=== PATIENT | female | born 1940 | race Caucasian/White ===

== ENCOUNTER → 2022-05-31 | Outpatient (CLI) | payer MEDICARE, BC ==
--- NOTE | 2022-05-31 10:42 | BD ---
EXAMINATION TYPE: Axial Bone Density DATE OF EXAM: 05/31/2022 CLINICAL HISTORY: 82 years old Female. ICD-10 CODE: Z78.0 MENOPAUSAL STATE Height: 63in Weight: 112lb FRAX RISK QUESTIONS: Family History (Parent hip fracture): yes Secondary Osteoporosis: RISK FACTORS HISTORY OF: Active: yes Postmenopausal woman: yes MEDICATIONS: Thyroid Medications: Which medication: Levothyroxine How Long: about 6 years Additional Medications: cholesterol med, vitamin d Additional History: EXAM MEASUREMENTS: Bone mineral densitometry was performed using the mChron System. Bone mineral density as measured about the Lumbar spine is: ----- L1-L4(G/cm2): 1.247 T Score Values are as follows: ----- L1: -0.1 ----- L2: -0.7 ----- L3: 0.8 ----- L4: 1.8 ----- L1-L4: 0.6 Z Score Values are as follows: ----- L1: 2.2 ----- L2: 1.6 ----- L3: 3.1 ----- L4: 4.1 ----- L1-L4: 2.9 First dexa at [facility] Bone mineral density about the R hip (g/cm2): 0.862 Bone mineral density about the L hip (g/cm2): 0.953 T Score values are as follows: -----R Neck: -0.7 -----L Neck: -1.0 -----R Total: -1.2 -----L Total: -0.4 Z Score values are as follows: -----R Neck: 1.8 -----L Neck: 1.5 -----R Total: 1.2 -----L Total: 2.0 FRAX%s: The graph provided illustrates a 16.6% chance for a major osteoporotic fx and a 8.7% chance f or the hips probability for fx in 10 years time. IMPRESSION: Osteopenia (T Score between -2.5 and -1). There is slightly increased risk of fracture and the patient may be considered for treatment. Re-Screen 2-5 years. NOTE: T-SCORE=SD OF THE YOUNG ADULT MEAN.
--- NOTE | 2022-06-17 08:25 | MM ---
Reason for Exam: Screening (asymptomatic). Last mammogram was performed 2 year(s) and 7 month(s) ago. Patient History: Menarche at age 15. First Full-Term at age 31. Late child-bearing (after 31). Right ovary removed at age 46. Postmenopausal. Estrogen for 4 years, 7 months. Bilateral Cyst Aspiration. Cyst Aspiration on the Left side. Bilateral Excisional Biopsy. Excisional Biopsy on the Right side. Mother had breast cancer at or over age 50. Risk Values: Fransisca 5 year model risk: 4.4%. NCI Lifetime model risk: 6.3%. Prior Study Comparison: 03/11/1997 Right Special View Mammogram, [facility]. 09/17/1997 Screening Mammogram, Unknown. 05/20/1998 Bilateral Screening Mammogram, [facility]. 09/20/2017 Bilateral Screening Mammogram, [facility]. 11/12/2019 Bilateral Screening Mammogram, [facility]. Tissue Density: The breast tissue is heterogeneously dense. This may lower the sensitivity of mammography. Findings: Analyzed By CAD. Pattern appears symmetrical and stable. No significant interval change. There is a focal asymmetry within the upper outer right breast, stable. No suspicious groups of microcalcifications, spiculated or lobular masses, architectural distortion or other secondary signs of malignancy are mammographically apparent. Overall Assessment: Benign, BI-RAD 2 Management: Screening Mammogram of both breasts in 1 year. A negative mammogram report should not preclude additional follow up of suspicious palpable abnormalities. Patient should continue monthly self breast exam. A clinical breast exam by your physician is recommended on an annual basis and results should be correlated with mammographic findings. Electronically signed and approved by: Dimitri Melgar D.O. Radiologis
== END | disposition home or self-care (01) ==
LOC: RADMAMWWP 08:42
PROVIDERS: ATTEND Family Medicine
DX: Z12.31 Encounter for screening mammogram for malignant neoplasm of breast (principal); M85.89 Other specified disorders of bone density and structure, multiple sites; Z78.0 Asymptomatic menopausal state; Z80.3 Family history of malignant neoplasm of breast
CPT/HCPCS: 77063; 77067; 77080

== ENCOUNTER → 2023-06-06 | Outpatient (CLI) | payer MEDICARE, BC ==
--- NOTE | 2023-06-07 15:18 | MM ---
Reason for Exam: Screening (asymptomatic). Last screening mammogram was performed 12 month(s) ago. Patient History: Menarche at age 15. First Full-Term at age 31. Late child-bearing (after 31). Right ovary removed at age 46. Postmenopausal. Patient has history of breast feeding. Estrogen for 4 years, 7 months. Bilateral Cyst Aspiration. Cyst Aspiration on the Left side. Bilateral Excisional Biopsy. Excisional Biopsy on the Right side. Mother had breast cancer at or over age 50. Risk Values: Fransisca 5 year model risk: 4.3%. NCI Lifetime model risk: 5.7%. Prior Study Comparison: 05/20/1998 Bilateral Screening Mammogram, [facility]. 09/20/2017 Bilateral Screening Mammogram, [facility]. 11/12/2019 Bilateral Screening Mammogram, [facility]. 05/31/2022 Bilateral MG 3D screening mammo w/cad, [facility]. Tissue Density: The breasts are heterogeneously dense, which may obscure small masses. Findings: Analyzed By CAD. There is no suspicious group of microcalcifications or new suspicious mass in either breast. Overall Assessment: Negative, BI-RAD 1 Management: Screening Mammogram of both breasts in 1 year. . Patient should continue monthly self-breast exams. A clinical breast exam by your physician is recommended on an annual basis. This exam should not preclude additional follow-up of suspicious palpable abnormalities. Note on Fransisca scores and lifetime risk: 1. A Fransisca score greater than 3% is considered moderate risk. If this is the case, consider specialist referral to assess eligibility for a risk reducing agent. 2. If overall lifetime risk for the development of breast cancer is 20% or higher, the patient may qualify for future screening with alternating mammogram and breast MRI. Electronically signed and approved by: João Vidal M.D. Radiologis
== END | disposition home or self-care (01) ==
LOC: RADMAMWWP 09:24
PROVIDERS: ATTEND Family Medicine
DX: Z12.31 Encounter for screening mammogram for malignant neoplasm of breast (principal); Z80.3 Family history of malignant neoplasm of breast; Z78.0 Asymptomatic menopausal state
CPT/HCPCS: 77063; 77067

== ENCOUNTER → 2024-03-14 | Outpatient (CLI) | payer MEDICARE, BC ==
--- NOTE | 2024-03-14 16:07 | US ---
EXAMINATION TYPE: US venous doppler duplex LE RT DATE OF EXAM: 03/14/2024 3:41 PM COMPARISON: NONE CLINICAL INDICATION: Female, 83 years old with history of R22.40 SWELLING MASS, LUMP RIGHT LE; right popliteal fossa palpable and discomfort, no h/o dvt TECHNIQUE: The lower extremity deep venous system is examined utilizing real time linear array sonog ibrahima with graded compression, color doppler sonography, and spectral doppler. SIDE PERFORMED: Right FINDINGS: VESSELS IMAGED: Common Femoral Vein Deep Femoral Vein Greater Saphenous Vein * Femoral Vein Popliteal Vein Small Saphenous Vein * Proximal Calf Veins (* superficial vessels) Right Leg: Negative for DVT, Color Doppler imaging shows patency of the vessels. Spectral waveforms are within normal limits. Complex fluid collection seen within medial popliteal fossa at area of palpable = 5.0 x 4.1 x 1. 7cm IMPRESSION: 1. Right lower extremity ultrasound negative for deep venous thrombosis. 2. Right Popliteal cyst [facility], , 03/14/2024 4:05 PM
== END | disposition home or self-care (01) ==
LOC: RADUSWWP 15:21
PROVIDERS: ATTEND Family Medicine
DX: M71.21 Synovial cyst of popliteal space [Baker], right knee (principal); R22.40 Localized swelling, mass and lump, unspecified lower limb

== ENCOUNTER → 2024-09-06 | Outpatient (CLI) | payer MEDICARE, BC ==
--- NOTE | 2024-09-06 13:34 | MM ---
Reason for Exam: Screening (asymptomatic). Last mammogram was performed 1 year(s) and 3 month(s) ago. Patient History: Menarche at age 15. First Full-Term at age 31. Late child-bearing (after 31). Right ovary removed at age 46. Postmenopausal. Patient has history of breast feeding. Estrogen for 4 years, 7 months. Bilateral Cyst Aspiration. Cyst Aspiration on the Left side. Bilateral Excisional Biopsy. Excisional Biopsy on the Right side. Mother had breast cancer, age 85. Risk Values: Fransisca 5 year model risk: 4.1%. NCI Lifetime model risk: 5.0%. Prior Study Comparison: 11/12/2019 Bilateral Screening Mammogram, [facility]. 05/31/2022 Bilateral MG 3D screening mammo w/cad, [facility]. 06/06/2023 Bilateral MG 3D screening mammo w/cad, [facility]. Tissue Density: The breasts are heterogeneously dense, which may obscure small masses. Findings: Analyzed By CAD. There is no suspicious group of microcalcifications or new suspicious mass in either breast. Overall Assessment: Negative, BI-RAD 1 Management: Screening Mammogram of both breasts in 1 year. . Patient should continue monthly self-breast exams. A clinical breast exam by your physician is recommended on an annual basis. This exam should not preclude additional follow-up of suspicious palpable abnormalities. Note on Fransisca scores and lifetime risk: 1. A Fransisca score greater than 3% is considered moderate risk. If this is the case, consider specialist referral to assess eligibility for a risk reducing agent. 2. If overall lifetime risk for the development of breast cancer is 20% or higher, the patient may qualify for future screening with alternating mammogram and breast MRI. [facility], , 09/06/2024 1:31 PM. Electronically signed and approved by: Torsten Montes M.D.
== END | disposition home or self-care (01) ==
LOC: RADMAMWWP 12:55
PROVIDERS: ATTEND Family Medicine
DX: Z12.31 Encounter for screening mammogram for malignant neoplasm of breast (principal); R92.333 Mammographic heterogeneous density, bilateral breasts; Z78.0 Asymptomatic menopausal state; Z80.3 Family history of malignant neoplasm of breast
CPT/HCPCS: 77063; 77067